=== PATIENT | male | born 1965 ===

== ENCOUNTER 2018-08-02 03:22 | Outpatient (CLI) | payer MEDICARE, MEDICAID | END 2018-08-02 23:59 | disposition home or self-care (01) | LOC: DIABETIC 03:22 | PROVIDERS: ATTEND Family Medicine | DX: E11.9 Type 2 diabetes mellitus without complications (principal); I10 Essential (primary) hypertension; E78.5 Hyperlipidemia, unspecified; E78.1 Pure hyperglyceridemia; Z79.84 Long term (current) use of oral hypoglycemic drugs | CPT/HCPCS: G0108 ==

== ENCOUNTER 2018-11-03 02:10 | Outpatient (CLI) | payer MEDICARE, MEDICAID | END 2018-11-03 23:59 | disposition home or self-care (01) | LOC: DIABETIC 02:10 | PROVIDERS: ATTEND Family Medicine | DX: E11.9 Type 2 diabetes mellitus without complications (principal); I10 Essential (primary) hypertension; E78.5 Hyperlipidemia, unspecified; Z79.84 Long term (current) use of oral hypoglycemic drugs | CPT/HCPCS: G0108 ==

== ENCOUNTER 2019-02-09 01:32 | Outpatient (CLI) | payer MEDICARE, MEDICAID | END 2019-02-09 23:59 | disposition home or self-care (01) | LOC: DIABETIC 01:32 | PROVIDERS: ATTEND Family Medicine | DX: E11.9 Type 2 diabetes mellitus without complications (principal); I10 Essential (primary) hypertension; E78.5 Hyperlipidemia, unspecified; Z79.84 Long term (current) use of oral hypoglycemic drugs | CPT/HCPCS: G0108 ==

== ENCOUNTER 2019-05-18 02:21 | Outpatient (CLI) | payer MEDICARE, MEDICAID | END 2019-05-18 23:59 | disposition home or self-care (01) | LOC: DIABETIC 02:21 | PROVIDERS: ATTEND Family Medicine | DX: E11.9 Type 2 diabetes mellitus without complications (principal); E78.5 Hyperlipidemia, unspecified; Z79.84 Long term (current) use of oral hypoglycemic drugs | CPT/HCPCS: G0108 ==

== ENCOUNTER 2019-08-22 04:11 | Outpatient (CLI) | payer MEDICARE, MEDICAID | END 2019-08-22 23:59 | disposition home or self-care (01) | LOC: DIABETIC 04:11 | PROVIDERS: ATTEND Family Medicine | DX: E11.9 Type 2 diabetes mellitus without complications (principal); E78.5 Hyperlipidemia, unspecified; I10 Essential (primary) hypertension | CPT/HCPCS: G0108 ==

== ENCOUNTER 2019-11-21 00:23 | Outpatient (CLI) | payer MEDICARE, MEDICAID | END 2019-11-21 23:59 | disposition home or self-care (01) | LOC: DIABETIC 00:23 | PROVIDERS: ATTEND Family Medicine | DX: E11.9 Type 2 diabetes mellitus without complications (principal); E78.5 Hyperlipidemia, unspecified | CPT/HCPCS: G0108 ==